=== PATIENT | female | born 1950 | race Caucasian/White ===

== ENCOUNTER 2016-06-26 04:14 | Emergency (ER) | payer OTHER, BC ==
--- NOTE | 2016-06-26 04:16 | PDOC ---
History of Present Illness - General Stated Complaint: TINGLING SENSATION IN CHEST Time Seen by Provider: 06/26/16 04:15 - History of Present Illness Initial Comments: This 65-year-old woman with a history of hypertension and hyperlipidemia presents with 1 hour history of "tingling/fullness" sensation in her mid chest. Patient was lying in bed but was already awake when sensation began. She denies shortness of breath/pain/"tightness"/nausea or diaphoresis. Symptoms improved somewhat with sitting up. Patient burped on her way to the ER and sensation resolved. She is now asymptomatic and comfortable. No previous history of this type of discomfort; she denies GERD or other gastrointestinal issues. No recent change in diet. Patient states that she uses an indoor bicycle at least 5 times a week and swims regularly. She has no pain or shortness of breath with active exercise. Risk factors: Positive for hypertension/hyperlipidemia; no active smoking history/no DM/no family history of coronary artery disease Social history: Patient lives alone; smoked briefly in college, none since; denies EtOH/other recreational drug use. Medications Losartan Crestor ALLERGIES Penicillin Chart lists cephalosporins the patient has no recall of ALLERGIES to this class of drugs Past History - Past Medical History Allergies/Adverse Reactions: Allergies Allergy/AdvReac Type Severity Reaction Status Date / Time Cephalosporins Allergy Verified 06/26/16 04:17 Penicillins Allergy Verified 06/26/16 04:17 cefepime AdvReac Rash Verified 06/26/16 04:17 Home Medications: Ambulatory Orders Losartan Potassium [Cozaar -] 50 mg PO DAILY 06/26/16 Rosuvastatin Calcium [Crestor] 5 mg PO DAILY 06/26/16 HTN: Yes Hypercholesterolemia: Yes - Surgical History Orthopedic Surgery: Yes (rt ankle) - Immunization History Td Vaccination: (UNKNOWN) Immunization Up to Date: No - Psycho/Social/Smoking Cessation Hx Anxiety: No Suicidal Ideation: No Smoking Status: No Smoking History: Former smoker Have you smoked in the past 12 months: No Number of Cigarettes Smoked Daily: 0 Hx Alcohol Use: No Drug/Substance Use Hx: No Review of Systems - Review of Systems Able to Perform ROS?: Yes Comments:: 12 point review of systems is negative except for what is noted in the history of present illness *Physical Exam - Vital Signs Last Vital Signs Temp Pulse Resp BP Pulse Ox 97.6 F 56 L 16 166/87 100 02/21/17 04:20 06/26/16 04:20 06/26/16 04:20 06/26/16 04:36 06/26/16 04:20 - Physical Exam Comments: GENERAL:adult female, alert and X 3 in no acute distress HEAD: Normal with no signs of trauma. EYES: PERRLA, EOMI, sclera anicteric, conjunctiva clear. ENT: Ears normal, nares patent, oropharynx clear without exudates. Dry mucous membranes. NECK: Normal range of motion, supple without lymphadenopathy, JVD, or masses. LUNGS: Breath sounds equal, clear to auscultation bilaterally. No wheezes, and no crackles. HEART:Regular rate and rhythm, normal S1 and S2,3/6 systolic murmur second IC space radiating to carotids, rub or gallop. ABDOMEN:.normal bowel sounds No guarding,tenderness or rebound.No masses No distention. EXTREMITIES: Normal range of motion, no edema. No clubbing or cyanosis. No erythema, or tenderness. NEUROLOGICAL: Cranial nerves II through XII grossly intact. Normal speech. No focal neurological deficits. MUSCULOSKELETAL: Back non-tender to palpation, no CVA tenderness SKIN: Warm, Dry, normal turgor, no rashes or lesions noted. Heart Score/ECG Review - History History: Slightly suspicious - Electrocardiogram EKG: Normal - Age Age: 45-65 - Risk Factors Risk Factors Heart Score: Yes Hx Hypercholesterolemia, Yes Hx Hypertension Based on the list above the patient has:: 1-2 risk factors - Troponin Troponin: </= normal limit - Score Heart Score - Total: 2 Progress Note - Progress Note Progress Note: Twelve-lead electrocardiogram is performed. This shows sinus bradycardia at 53 bpm; intervals, wave forms and axis are all normal. No acute ST or T-wave abnormalities. No previous tracings are available but interpretation from EKG reveal no change in rhythm, intervals or axis Patient continues to be comfortable. Patient has only 2 risk factors for coronary artery disease and EKG unchanged from previous tracing. Unlikely that sensation was ischemic in etiology. Patient admits that she was anxious when she experienced this new sensation, especially since she lives at home. When the feeling resolved after burping, she was already on her way to the ER so she decided to have it evaluated. Patient will be discharged with follow-up with her test rack operator/PMD, Dr. Lim. She has her 6 month follow-up in the next 2 weeks. However, she has been advised to call the office tomorrow and to see him within the next 5 days. She should return to the ER if she has any further unusual chest sensations or experiences shortness of breath. *DC/Admit/Observation/Transfer Diagnosis at time of Disposition: Atypical chest pain - Discharge Dispostion Disposition: HOME Condition at time of disposition: Stable - Referrals Referrals: Candido Lim MD [Primary Care Provider] - Call tomorrow - Patient Instructions Printed Discharge Instructions: DI for Atypical Chest Pain Additional Instructions: continue medications as prescribed call Dr Lim's office in AM to arrange followup within the next 5 days return to ER if you have recurrent symptoms
[2016-06-26 04:25] VITALS: PULSE 56; TEMP 97.6; BMI 27.3
[2016-06-26 04:37] VITALS: BP 166/87
--- NOTE | 2016-06-26 21:33 | EKG ---
Test Reason : Blood Pressure : / mmHG Vent. Rate : 053 BPM Atrial Rate : 053 BPM P-R Int : 152 ms QRS Dur : 088 ms QT Int : 458 ms P-R-T Axes : 041 -12 040 degrees QTc Int : 429 ms SINUS BRADYCARDIA OTHERWISE NORMAL ECG WHEN COMPARED WITH ECG OF 29-JUL-2012 10:26, NO SIGNIFICANT CHANGE WAS FOUND Confirmed by HILARY MONCADA MD ([id number]) on 06/26/2016 9:32:55 PM Referred By: MD MUELLER Confirmed By:HILARY MONCADA MD
== END 2016-06-26 05:02 | disposition home or self-care (01) ==
LOC: FER 04:14
DX: R07.89 Other chest pain (principal); Z87.890 Personal history of sex reassignment; E78.00 Pure hypercholesterolemia, unspecified; I10 Essential (primary) hypertension
CPT/HCPCS: 93005; 99281-25

== ENCOUNTER 2017-02-23 23:58 | Emergency (ER) | payer OTHER, BC ==
[2017-02-24 00:05] VITALS: PULSE 61; TEMP 98.1; BMI 27.3
--- NOTE | 2017-02-24 00:23 | PDOC ---
History of Present Illness - General Chief Complaint: Blood Pressure Problem Stated Complaint: HTN Time Seen by Provider: 02/24/17 00:16 - History of Present Illness Initial Comments: This 66-year-old woman with a history of hypertension and hyperlipidemia presents with history of episode of lightheadedness and subsequent elevation of her blood pressure measured on home monitor just prior to presentation. Patient states that she felt lightheaded for approximately 10-15 minutes earlier tonight (patient admits that she was upset about baseball game result). She denies shortness of breath/chest pain/diaphoresis/nausea. Because of the lightheadedness, patient took her blood pressure at home with her home monitor. She states that the diastolic measurement was 115 at that time. Lightheadedness resolved at home and she had no further symptoms but she came to the emergency room for evaluation of her hypertension. Patient has been taking her medications as prescribed. No other recent acute illness or other new symptoms Past History - Past Medical History Allergies/Adverse Reactions: Allergies Allergy/AdvReac Type Severity Reaction Status Date / Time Cephalosporins Allergy Verified 06/26/16 04:17 Penicillins Allergy Verified 06/26/16 04:17 cefepime AdvReac Rash Verified 06/26/16 04:17 Home Medications: Ambulatory Orders Losartan Potassium [Cozaar -] 100 mg PO DAILY 06/26/16 Rosuvastatin Calcium [Crestor] 20 mg PO DAILY 06/26/16 HTN: Yes Hypercholesterolemia: Yes - Surgical History Orthopedic Surgery: Yes (rt ankle) - Immunization History Td Vaccination: (UNKNOWN) Immunization Up to Date: No - Suicide/Smoking/Psychosocial Hx Smoking Status: No Smoking History: Former smoker Have you smoked in the past 12 months: No Number of Cigarettes Smoked Daily: 0 Information on smoking cessation initiated: No Hx Alcohol Use: No Drug/Substance Use Hx: No Review of Systems - Review of Systems Able to Perform ROS?: Yes Comments:: 12 point review of systems is negative except for what is noted in the history of present illness *Physical Exam - Vital Signs Last Vital Signs Temp Pulse Resp BP Pulse Ox 98.1 F 61 18 153/103 100 02/24/17 00:03 02/24/17 00:03 02/24/17 00:03 02/24/17 00:03 02/24/17 00:03 - Physical Exam Comments: GENERAL: Adult female, alert and oriented 3, in no acute distress HEAD: Normal with no signs of trauma. EYES: PERRLA, EOMI, sclera anicteric, conjunctiva clear. ENT: Ears normal, nares patent, oropharynx clear without exudates. Moist mucous membranes. NECK: Normal range of motion, supple without lymphadenopathy, JVD, or masses. LUNGS: Breath sounds equal, clear to auscultation bilaterally. No wheezes, and no crackles. HEART:Regular rate and rhythm, normal S1 and S2 without murmur, rub or gallop. ABDOMEN:.normal bowel sounds No guarding,tenderness or rebound.No masses No distention. EXTREMITIES: Normal range of motion, no edema. No clubbing or cyanosis. No erythema, or tenderness. NEUROLOGICAL: Cranial nerves II through XII grossly intact. Normal speech. No focal neurological deficits. MUSCULOSKELETAL: Back non-tender to palpation, no CVA tenderness SKIN: Warm, Dry, normal turgor, no rashes or lesions noted. Medical Decision Making - Medical Decision Making This 66-year-old woman with a history of HTN/HLD presents with a brief episode of lightheadedness, now resolved and elevation of her blood pressure on home monitor during the episode of lightheadedness. Patient admits to being upset prior to the lightheadedness. Patient is currently asymptomatic. Blood pressure readings on arrival was 153/103; approximately 20 minutes after this, repeat reading of 137/86 was obtained. Exam reveals no significant abnormalities. 12-lead electrocardiogram was performed and interpreted by me. This shows normal sinus rhythm at 57 bpm; there is no evidence of acute ST or T-wave abnormalities. [place], intervals and wave forms are normal. It is essentially unchanged from 12-lead electrocardiogram dated 06/26/16. Results discussed with the patient. Dr. Candido Lim is this patient's eeler. She states that she will call him on February 25 to inform him of today's episode of lightheadedness and elevated blood pressure reading. She is informed that she will also have the readings that were obtained here on arrival and subsequently. Meanwhile, she should continue her medications as prescribed and return to the emergency room if she has any persistent lightheadedness or experiences chest pain/shortness of breath/palpitations. *DC/Admit/Observation/Transfer Diagnosis at time of Disposition: Hypertension Qualifiers: Hypertension type: essential hypertension Qualified Code(s): I10 - Essential ( primary) hypertension - Discharge Dispostion Disposition: HOME Condition at time of disposition: Stable - Referrals Referrals: Mala Rodrigues MD [Primary Care Provider] - Canddio Lim MD [Staff Physician] - - Patient Instructions Printed Discharge Instructions: DI for High Blood Pressure Additional Instructions: continue medications as prescribed followup with Dr Lim as discussed return to ER if you develop chest pain/shortness of breath/palpitations
[2017-02-24 00:26] VITALS: BP 137/86
--- NOTE | 2017-02-26 10:53 | EKG ---
Test Reason : Blood Pressure : / mmHG Vent. Rate : 057 BPM Atrial Rate : 057 BPM P-R Int : 162 ms QRS Dur : 096 ms QT Int : 438 ms P-R-T Axes : 034 -21 041 degrees QTc Int : 426 ms SINUS BRADYCARDIA ? INFERIOR INFARCT , AGE UNDETERMINED WHEN COMPARED WITH ECG OF 26-JUN-2016 04:31, NO SIGNIFICANT CHANGE WAS FOUND Confirmed by MD AMY, ISAURA ([id number]) on 02/26/2017 10:52:41 AM Referred By: MD MUELLER Confirmed By:ISAURA REYES MD
== END 2017-02-24 00:49 | disposition home or self-care (01) ==
LOC: FER 23:58
DX: I10 Essential (primary) hypertension (principal); Z87.891 Personal history of nicotine dependence; E78.5 Hyperlipidemia, unspecified
CPT/HCPCS: 93005; 99282-25

== ENCOUNTER 2024-11-24 14:22 | Inpatient (IN) | payer OTHER, BC ==
[~2024-11-24 14:22] MED LIST: MEROPENEM 500 MG in DEXTROSE 5%-WATER 100 ML IVPB SCH
[2024-11-24 14:40] VITALS: BMI 26.6
[2024-11-24] MEDS: VANCOMYCIN PREMIX 1.75 GM 1,750 MG/350 ML PIGGYBACK IVPB ONE (16:00)
[2024-11-24 16:04] LABS: ABSOLUTE IMMATURE GRANULOCYTES 0.02 x10^3/uL (0.0-0.031); BASOPHILS # 0.01 x10^3/uL (0.01-0.08); EOSINOPHIL % 3.1 % (0.7-5.8); EOSINOPHILS # 0.25 x10^3/uL (0.04-0.36); MCHC 33.3 g/dl (32.2-35.5); MEAN CELL VOLUME 86.2 fl (79.4-94.8); MEAN PLT VOLUME 10.2 fl (9.4-12.3); MONOCYTE # 0.59 x10^3/uL (0.24-0.86); MONOCYTE % 7.3 % (4.7-12.5); RDW 11.9 % (12.4-16.6)
[2024-11-24 16:09] LABS: BG HCT 44.0 % (32.4-45.2); VENOUS BASE EXCESS -0.5 mmol/L (-2-2); VENOUS O2 SATURATION 80.5 % (70-80); VENOUS PCO2 37.9 mmHg (38-52); VENOUS PH 7.414 (7.310-7.410)
[2024-11-24 16:15] LABS: INR 1.1 (0.83-1.09); PROTHROMBIN TIME (PATIENT) 12.0 SEC (9.7-13.0)
[2024-11-24 16:18] LABS: ACTIVATED PTT 32.2 SECONDS (25.2-36.5)
[2024-11-24 16:21] LABS: CO2 28.0 mmol/L (21-32); GLUCOSE,RANDOM 101.0 mg/dL (74-106)
[2024-11-24 16:24] LABS: CREATININE 0.7 mg/dL (0.55-1.3); SGOT/AST 18.0 U/L (15-37); SGPT/ALT 23.0 U/L (13-61)
[2024-11-24 16:26] LABS: TOT PROT 6.9 g/dl (6.4-8.2)
[2024-11-24 16:27] LABS: ALK PHOS 85.0 U/L (45-117)
[2024-11-24 17:12] LABS: HCV DIAGNOSTIC IN-HOUSE W/RFLX NON-REACTIVE (NONREACTIVE)
[2024-11-24 17:13] LABS: HIV INTERPRETATION NEGATIVE (NEGATIVE)
[2024-11-24 22:12] VITALS: RESP 18
[2024-11-24 23:43] LABS: ERYTHROCYTE SEDIMENTATION RATE 18 mm/hr (0-30)
[2024-11-25] MEDS: MEROPENEM-0.9% SODIUM CHLORIDE 500 MG/50 ML BAG IVPB SCH (01:58)
[2024-11-25] MEDS ORDERED: MEROPENEM 500 MG in DEXTROSE 5%-WATER 100 ML IVPB SCH (02:00)
[2024-11-25 08:59] LABS: ABSOLUTE IMMATURE GRANULOCYTES 0.02 x10^3/uL (0.0-0.031); BASOPHILS # 0.01 x10^3/uL (0.01-0.08); EOSINOPHIL % 3.5 % (0.7-5.8); EOSINOPHILS # 0.24 x10^3/uL (0.04-0.36); MCHC 32.6 g/dl (32.2-35.5); MEAN CELL VOLUME 87.0 fl (79.4-94.8); MEAN PLT VOLUME 10.6 fl (9.4-12.3); MONOCYTE # 0.46 x10^3/uL (0.24-0.86); MONOCYTE % 6.8 % (4.7-12.5); RDW 12.1 % (12.4-16.6)
[2024-11-25 09:45] LABS: CO2 28.0 mmol/L (21-32)
[2024-11-25 09:46] LABS: GLUCOSE,RANDOM 90.0 mg/dL (74-106)
[2024-11-25 09:48] LABS: SGPT/ALT 22.0 U/L (13-61)
[2024-11-25 09:49] LABS: CREATININE 0.7 mg/dL (0.55-1.3); SGOT/AST 18.0 U/L (15-37)
[2024-11-25 09:50] LABS: TOT PROT 6.8 g/dl (6.4-8.2)
[2024-11-25 09:51] LABS: ALK PHOS 76.0 U/L (45-117)
[2024-11-25] MEDS: EZETIMIBE 10 MG TABLET (FP) PO SCH (10:23)
[2024-11-25] MEDS: ENOXAPARIN NA (PORCINE) 40 MG/0.4 ML DISP.SYRIN SQ SCH (10:23)
[2024-11-25] MEDS: LOSARTAN POTASSIUM 50 MG TABLET PO SCH (10:23)
[2024-11-25] MEDS: amLODIPine BESYLATE 10 MG TABLET (FP) PO SCH (10:23)
[2024-11-25] MEDS ORDERED: COLLAGENASE CLOSTRIDIUM HIST. 30 GRAMS TUBE TP SCH (11:30)
[2024-11-25] MEDS: COLLAGENASE CLOSTRIDIUM HIST. 30 GRAMS TUBE TP SCH (12:45)
[2024-11-25] MEDS: MEROPENEM 1 GM in DEXTROSE 5%-WATER 100 ML IVPB SCH (18:03)
[2024-11-25] MEDS: ROSUVASTATIN CA 20 MG TABLET PO SCH (21:47)
[2024-11-26 09:05] LABS: ABSOLUTE IMMATURE GRANULOCYTES 0.01 x10^3/uL (0.0-0.031); BASOPHILS # 0.02 x10^3/uL (0.01-0.08); EOSINOPHIL % 7.4 % (0.7-5.8); EOSINOPHILS # 0.44 x10^3/uL (0.04-0.36); MCHC 32.7 g/dl (32.2-35.5); MEAN CELL VOLUME 87.0 fl (79.4-94.8); MEAN PLT VOLUME 10.7 fl (9.4-12.3); MONOCYTE # 0.45 x10^3/uL (0.24-0.86); MONOCYTE % 7.5 % (4.7-12.5); RDW 12.2 % (12.4-16.6)
[2024-11-26 10:03] LABS: CO2 27.0 mmol/L (21-32); GLUCOSE,RANDOM 100.0 mg/dL (74-106)
[2024-11-26 10:06] LABS: ALK PHOS 71.0 U/L (45-117); SGOT/AST 14.0 U/L (15-37); SGPT/ALT 19.0 U/L (13-61)
[2024-11-26 10:07] LABS: CREATININE 0.8 mg/dL (0.55-1.3)
[2024-11-26 10:08] LABS: TOT PROT 6.4 g/dl (6.4-8.2)
[2024-11-26 17:07] VITALS: BP 126/72; PULSE 59; TEMP 97.3
== END 2024-11-26 17:12 | disposition home or self-care (01) | DRG 603 ==
LOC: JER 14:22 → JERBED 18:29 → J5S 21:30
PROVIDERS: ADMIT Internal Medicine; ATTEND Internal Medicine
DX: L03.115 Cellulitis of right lower limb (principal); L97.319 Non-pressure chronic ulcer of right ankle with unspecified severity; I10 Essential (primary) hypertension; E78.5 Hyperlipidemia, unspecified; E11.621 Type 2 diabetes mellitus with foot ulcer
CPT/HCPCS: 36415; 73590-TC-RT-FY; 73610-TC-RT-FY; 73630-TC-RT-FY; 73721-RT-TC; 80053; 82803; 83605; 83735; 84100; 85025; 85610; 85651; 85730; 86140; 86803; 86850; 86900; 86901; 87040; 87070; 87205; 87389; 93005; 93010; 93922; 93926-TC; 99285-25; G0480; J3373